=== PATIENT | female | born 1955 | race American Indian/Alaskan Native ===

== ENCOUNTER 2021-07-31 21:12 | Inpatient (IN) | payer SELFPAY ==
--- NOTE | 2021-07-31 22:37 | XRay Report ---
CHEST 2 VIEWS INDICATION / CLINICAL INFORMATION: sob. COMPARISON: Chest x-ray 01/02/2021 FINDINGS: SUPPORT DEVICES: None. HEART / MEDIASTINUM: Moderate to severe cardiomegaly increased in amount since comparison. LUNGS / PLEURA: Bilateral vascular prominence as well as bilateral fine interstitial opacities accent uated by technique. No pneumothorax. BONES: No significant osseous abnormality. ADDITIONAL FINDINGS: No significant additional findings. IMPRESSION: 1. Interval increase in degree of cardiomegaly could reflect presence of pericardial effusion. 2. Mild CHF not excluded. Signer Name: Jaiden Gonzales II, MD Signed: 07/31/2021 10:32 PM Workstation Name: [id number]
[2021-07-31 22:43] LABS: Basophils % (Auto) 0.6 % (0.0-1.8); Eosinophils % (Auto) 0.7 % (0.0-4.3); Hemoglobin 11.2 gm/dl (10.1-14.3); Lymphocytes # (Auto) 1.1 K/mm3 (1.2-5.4); Lymphocytes % (Auto) 21.8 % (13.4-35.0); Mean Corpuscular HGB Conc 31 % (30-34); Mean Corpuscular Volume 91 fl (79-97); Monocytes # (Auto) 0.7 K/mm3 (0.0-0.8); Monocytes % (Auto) 12.6 % (0.0-7.3); Platelet Count 103 K/mm3 (140-440); Red Blood Count 3.97 M/mm3 (3.65-5.03); Red Cell Distribution Width 16.8 % (13.2-15.2)
[2021-07-31 23:04] LABS: INR 1.15 (0.87-1.13)
[2021-07-31 23:05] LABS: Albumin 3.6 g/dL (3.9-5); Calcium 8.5 mg/dL (8.4-10.2); Partial Thromboplastin Time 29.3 Sec. (24.2-36.6)
--- NOTE | 2021-08-01 00:24 | Emergency Department Report ---
ED Shortness of Breath HPI - General Chief Complaint: Dyspnea/Respdistress Stated Complaint: CHF Time Seen by Provider: 07/31/21 23:31 Source: patient, old records reviewed Mode of arrival: Ambulatory Limitations: No Limitations - History of Present Illness Initial Comments: 66-year female with a history of nonischemic cardiomyopathy with a EF of 20 to 25% as per echocardiogram here December 2020 presents to the hospital with complaints of recurrent abdominal swelling, leg edema, and dyspnea on exertion. Patient denies chest pain. History of paracentesis in the past with last several months ago. Patient is currently wearing a LifeVest. She is compliant with her medications including diuretics. Patient expresses confusion regarding her recommended fluid intake. 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 [facility] - Related Data [place] Medications Medication Instructions Recorded Confirmed Last Taken cephALEXin [Keflex] 500 mg PO BID 01/03/21 01/03/21 01/02/21 Previous Rx's Medication Instructions Recorded Last Taken Type Furosemide [Lasix TAB] 40 mg PO DAILY@0600 #30 tablet 05/07/17 01/02/21 Rx carvediloL [Coreg] 6.25 mg PO BID #60 tablet 05/07/17 01/01/21 Rx levoFLOXacin [Levaquin TAB] 750 mg PO Q24HR #5 tablet 05/07/17 01/02/21 Rx lisinopriL [Zestril TAB] 10 mg PO QDAY #30 tablet 05/07/17 01/02/21 Rx DOXYCYCLINE Hyclate [Vibramycin 100 mg PO BID #10 tab 01/16/21 Unknown Rx CAP] Spironolactone [Aldactone] 25 mg PO QDAY tablet 01/16/21 Unknown Rx cephALEXin [Keflex] 500 mg PO Q6HR #24 capsule 01/16/21 Unknown Rx lisinopriL [Zestril TAB] 2.5 mg PO QDAY tablet 01/16/21 Unknown Rx oxyCODONE /ACETAMINOPHEN [Percocet 1 tab PO Q6H PRN tablet 01/16/21 Unknown Rx 5/325 mg] Allergies Allergy/AdvReac Type Severity Reaction Status Date / Time feathers AdvReac Itching Verified 01/03/21 12:20 ED Review of Systems ROS: Stated complaint: CHF Other details as noted in HPI Comment: All other systems reviewed and negative ED Past Medical Hx - Past Medical History Hx Congestive Heart Failure: Yes (Nonischemic cardiomyopathy) Hx Asthma: Yes Hx HIV: No Additional medical history: Leg cellulitis - Social History Smoking Status: Current Every Day Smoker - Medications Home Medications: Home Medications Medication Instructions Recorded Confirmed Last Taken Type Furosemide [Lasix TAB] 40 mg PO DAILY@0600 #30 tablet 05/07/17 01/03/21 01/02/21 Rx carvediloL [Coreg] 6.25 mg PO BID #60 tablet 05/07/17 01/03/21 01/01/21 Rx levoFLOXacin [Levaquin TAB] 750 mg PO Q24HR #5 tablet 05/07/17 01/03/21 01/02/21 Rx lisinopriL [Zestril TAB] 10 mg PO QDAY #30 tablet 05/07/17 01/03/21 01/02/21 Rx cephALEXin [Keflex] 500 mg PO BID 01/03/21 01/03/21 01/02/21 History DOXYCYCLINE Hyclate [Vibramycin 100 mg PO BID #10 tab 01/16/21 Unknown Rx CAP] Spironolactone [Aldactone] 25 mg PO QDAY tablet 01/16/21 Unknown Rx cephALEXin [Keflex] 500 mg PO Q6HR #24 capsule 01/16/21 Unknown Rx lisinopriL [Zestril TAB] 2.5 mg PO QDAY tablet 01/16/21 Unknown Rx oxyCODONE /ACETAMINOPHEN [Percocet 1 tab PO Q6H PRN tablet 01/16/21 Unknown Rx 5/325 mg] ED Physical Exam - General Limitations: No Limitations - Other Other exam information: General: No acute distress Head: Atraumatic Eyes: normal appearance ENT: Moist mucous membranes Neck: Normal appearance, no midline tenderness Chest: Diminished basilar breath sounds bilaterally CV: Regular rate and rhythm Abdomen: Soft, normal bowel sounds, significant distended abdomen fluid-filled likely secondary to site Back: Normal inspection Extremity: Bilateral lower extremity edema without leg asymmetry or calf tender Neuro: Alert O x 3, no facial asymmetry, speech clear, no gross motor sensory deficit Psych: Appropriate behavior Skin: No rash ED Course Vital Signs 07/31/21 21:18 Temperature 98.1 F Pulse Rate 68 Respiratory 22 Rate Blood Pressure 127/71 O2 Sat by Pulse 96 Oximetry ED Medical Decision Making - Lab Data Result diagrams: 07/31/21 21:36 06/13/22 21:36 Lab Results 07/31/21 07/31/21 07/31/21 Range/Units 21:36 21:36 21:36 WBC 5.2 (4.5-11.0) K/mm3 RBC 3.97 (3.65-5.03) M/mm3 Hgb 11.2 (10.1-14.3) gm/dl Hct 36.0 (30.3-42.9) % MCV 91 (79-97) fl MCH 28 (28-32) pg MCHC 31 (30-34) % RDW 16.8 H (13.2-15.2) % Plt Count 103 L (140-440) K/mm3 Lymph % (Auto) 21.8 (13.4-35.0) % [place] % (Auto) 12.6 H (0.0-7.3) % Eos % (Auto) 0.7 (0.0-4.3) % Baso % (Auto) 0.6 (0.0-1.8) % Lymph # (Auto) 1.1 L (1.2-5.4) K/mm3 [place] # (Auto) 0.7 (0.0-0.8) K/mm3 Eos # (Auto) 0.0 (0.0-0.4) K/mm3 Baso # (Auto) 0.0 (0.0-0.1) K/mm3 Seg Neutrophils % 64.3 (40.0-70.0) % Seg Neutrophils # 3.4 (1.8-7.7) K/mm3 PT 16.0 H (12.2-14.9) Sec. INR 1.15 H (0.87-1.13) APTT 29.3 (24.2-36.6) Sec. Sodium 143 (137-145) mmol/L Potassium 3.9 (3.6-5.0) mmol/L Chloride 104.7 (98-107) mmol/L Carbon Dioxide 24 (22-30) mmol/L Anion Gap 18 mmol/L BUN 20 H (7-17) mg/dL Creatinine 1.3 H (0.6-1.2) mg/dL Estimated GFR 50 ml/min BUN/Creatinine Ratio 15 % Glucose 123 H (65-100) mg/dL Calcium 8.5 (8.4-10.2) mg/dL Total Bilirubin 2.00 H (0.1-1.2) mg/dL AST 19 (5-40) units/L ALT 9 (7-56) units/L Alkaline Phosphatase 185 H (35-129) units/L NT-Pro-B Natriuret Pep 43648 H (0-900) pg/mL Total Protein 6.9 (6.3-8.2) g/dL Albumin 3.6 L (3.9-5) g/dL Albumin/Globulin Ratio 1.1 % - EKG Data -: EKG Interpreted by Me (previous anterior infarct) EKG shows normal: sinus rhythm, ST-T waves (no stemi) - EKG Data When compared to previous EKG there are: no significant change - Radiology Data Radiology results: report reviewed CHEST 2 VIEWS INDICATION / CLINICAL INFORMATION: sob. COMPARISON: Chest x-ray 01/02/2021 FINDINGS: SUPPORT DEVICES: None. HEART / MEDIASTINUM: Moderate to severe cardiomegaly increased in amount since comparison. LUNGS / PLEURA: Bilateral vascular prominence as well as bilateral fine interstitial opacities accentuated by technique. No pneumothorax. BONES: No significant osseous abnormality. ADDITIONAL FINDINGS: No significant additional findings. IMPRESSION: 1. Interval increase in degree of cardiomegaly could reflect presence of pericardial effusion. 2. Mild CHF not excluded. - Medical Decision Making 66-year-old female with nonischemic cardiomyopathy currently wearing a LifeVest presents to the hospital progressively worsening edema and shortness of breath. Chest x-ray shows worsening cardiomegaly compared to previous and pericardial effusion cannot be ruled out. Patient is not exhibiting any signs of cardiopulmonary stability at this time. Patient has required paracentesis in the past. IV Lasix ordered in the ED. patient will be admitted to the hospitalist service for further work-up with cardiology consultation Critical Care Time: No Critical care attestation.: If time is entered above; I have spent that time in minutes in the direct care of this critically ill patient, excluding procedure time. ED Disposition Clinical Impression: Dilated cardiomyopathy, Fluid overload, Ascites Disposition: ADMITTED INPATIENT Is pt being admited?: Yes Condition: Stable Referrals: PRIMARY CARE, [Primary Care Provider] - 3-5 Days Time of Disposition: 00:30
[2021-08-01] MEDS ORDERED: FUROSEMIDE 40 MG/4 ML INJ IV ONE (00:32)
[2021-08-01] MEDS ORDERED: ALBUTEROL 2.5 MG/3 ML NEBU IH PRN (01:32)
[2021-08-01] MEDS ORDERED: ACETAMINOPHEN 325 MG TAB PO PRN (01:32)
[2021-08-01] MEDS ORDERED: MORPHINE 2 MG/1 ML INJ IV PRN (01:32)
[2021-08-01] MEDS ORDERED: MORPHINE 4 MG/1 ML INJ IV PRN (01:32)
[2021-08-01] MEDS ORDERED: ONDANSETRON 4 MG/2 ML INJ IV PRN (01:32)
--- NOTE | 2021-08-01 01:41 | History and Physical Report ---
History of Present Illness Date of examination: 08/01/21 Date of admission: 08/01/21 Chief complaint: Dyspnea Respiratory distress History of present illness: 66-year female with a history of nonischemic cardiomyopathy with a EF of 20 to 25% as per echocardiogram here December 2020 presents to the hospital with complaints of recurrent abdominal swelling, leg edema, and dyspnea on exertion. Patient denies chest pain. History of paracentesis in the past with last several months ago. Patient is currently wearing a LifeVest. She is compliant with her medications including diuretics. Patient expresses confusion regarding her recommended fluid intake. 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 Mild CHF not excluded. We are going to admit the patient we will put the patient on CHF pathway will consult cardiology Past History Past Medical History: heart failure, other (Asthma, leg cellulitis) Past Surgical History: No surgical history Social history: smoking Family history: hypertension Medications and Allergies Allergies Allergy/AdvReac Type Severity Reaction Status Date / Time feathers AdvReac Itching Verified 01/03/21 12:20 Home Medications Medication Instructions Recorded Confirmed Last Taken Type Furosemide [Lasix TAB] 40 mg PO DAILY@0600 #30 tablet 05/07/17 01/03/21 01/02/21 Rx carvediloL [Coreg] 6.25 mg PO BID #60 tablet 05/07/17 01/03/21 01/01/21 Rx levoFLOXacin [Levaquin TAB] 750 mg PO Q24HR #5 tablet 05/07/17 01/03/21 01/02/21 Rx lisinopriL [Zestril TAB] 10 mg PO QDAY #30 tablet 05/07/17 01/03/21 01/02/21 Rx cephALEXin [Keflex] 500 mg PO BID 01/03/21 01/03/21 01/02/21 History DOXYCYCLINE Hyclate [Vibramycin 100 mg PO BID #10 tab 01/16/21 Unknown Rx CAP] Spironolactone [Aldactone] 25 mg PO QDAY tablet 01/16/21 Unknown Rx cephALEXin [Keflex] 500 mg PO Q6HR #24 capsule 01/16/21 Unknown Rx lisinopriL [Zestril TAB] 2.5 mg PO QDAY tablet 01/16/21 Unknown Rx oxyCODONE /ACETAMINOPHEN [Percocet 1 tab PO Q6H PRN tablet 01/16/21 Unknown Rx 5/325 mg] Active Meds: Active Medications Acetaminophen (Acetaminophen 325 Mg Tab) 650 mg PO Q4H PRN PRN Reason: Pain MILD(1-3)/Fever >100.5/DONIS Albuterol (Albuterol 2.5 Mg/3 Ml Nebu) 2.5 mg IH Q3HRT PRN PRN Reason: Shortness Of Breath Albuterol/Ipratropium (Ipratropium/Albuterol Sulfate 3 Ml Ampul.Neb) 1 ampul IH Q6HRT [place] Carvedilol (Carvedilol 6.25 Mg Tab) 6.25 mg PO BID [facility] Cephalexin (Cephalexin 500 Mg Cap) 500 mg PO BID [facility]; Protocol Famotidine (Famotidine 20 Mg Tab) 20 mg PO BID [facility] Furosemide (Furosemide 40 Mg/4 Ml Inj) 40 mg IV BID@0600,1800 [facility] Lisinopril (Lisinopril 5 Mg Tab) 2.5 mg PO QDAY [facility] Morphine Sulfate (Morphine 2 Mg/1 Ml Inj) 2 mg IV Q4H PRN PRN Reason: Pain, Moderate (4-6) Morphine Sulfate (Morphine 4 Mg/1 Ml Inj) 4 mg IV Q4H PRN PRN Reason: Pain , Severe (7-10) Ondansetron HCl (Ondansetron 4 Mg/2 Ml Inj) 4 mg IV Q8H PRN PRN Reason: Nausea And Vomiting Sodium Chloride (Sodium Chloride 0.9% 10 Ml Flush Syringe) 10 ml IV BID [facility] Sodium Chloride (Sodium Chloride 0.9% 10 Ml Flush Syringe) 10 ml IV PRN PRN PRN Reason: LINE FLUSH Spironolactone (Spironolactone 25 Mg Tab) 25 mg PO QDAY [facility] Review of Systems All systems: negative Constitutional: other (Abdominal distention, leg swelling) Cardiovascular: orthopnea, edema, shortness of breath, dyspnea on exertion, paroxysmal nocturnal dyspnea Respiratory: shortness of breath, dyspnea on exertion Exam - Constitutional Vitals: Temp Pulse Resp BP Pulse Ox 98.1 F 68 22 127/71 96 07/31/21 21:18 07/31/21 21:18 07/31/21 21:18 07/31/21 21:18 07/31/21 21:18 General appearance: Present: no acute distress, well-nourished - EENT Eyes: Present: PERRL ENT: hearing intact, clear oral mucosa - Neck Neck: Present: supple, normal ROM - Respiratory Respiratory effort: normal Respiratory: bilateral: rales - Cardiovascular Heart Sounds: Present: S1 & S2. Absent: rub, click - Extremities Extremities: pulses symmetrical Extremity abnormal: edema Peripheral Pulses: within normal limits - Abdominal General gastrointestinal: Present: soft, non-tender, non-distended, normal bowel sounds Female genitourinary: Present: normal - Integumentary Integumentary: Present: clear, warm, dry - Musculoskeletal Musculoskeletal: gait normal, strength equal bilaterally - Psychiatric Psychiatric: appropriate mood/affect, intact judgment & insight - Neurologic Neurologic: CNII-XII intact, moves all extremities Results - Labs CBC & Chem 7: 07/31/21 21:36 07/31/21 21:36 Labs: Laboratory Last Values WBC 5.2 K/mm3 (4.5-11.0) 07/31/21 21:36 RBC 3.97 M/mm3 (3.65-5.03) 07/31/21 21:36 Hgb 11.2 gm/dl (10.1-14.3) 07/31/21 21:36 Hct 36.0 % (30.3-42.9) 07/31/21 21:36 MCV 91 fl (79-97) 07/31/21 21:36 MCH 28 pg (28-32) 07/31/21 21:36 MCHC 31 % (30-34) 07/31/21 21:36 RDW 16.8 % (13.2-15.2) H 07/31/21 21:36 Plt Count 103 K/mm3 (140-440) L 07/31/21 21:36 Lymph % (Auto) 21.8 % (13.4-35.0) 07/31/21 21:36 [place] % (Auto) 12.6 % (0.0-7.3) H 07/31/21 21:36 Eos % (Auto) 0.7 % (0.0-4.3) 07/31/21 21:36 Baso % (Auto) 0.6 % (0.0-1.8) 07/31/21 21:36 Lymph # (Auto) 1.1 K/mm3 (1.2-5.4) L 07/31/21 21:36 [place] # (Auto) 0.7 K/mm3 (0.0-0.8) 07/31/21 21:36 Eos # (Auto) 0.0 K/mm3 (0.0-0.4) 07/31/21 21:36 Baso # (Auto) 0.0 K/mm3 (0.0-0.1) 07/31/21 21:36 Seg Neutrophils % 64.3 % (40.0-70.0) 07/31/21 21:36 Seg Neutrophils # 3.4 K/mm3 (1.8-7.7) 07/31/21 21:36 PT 16.0 Sec. (12.2-14.9) H 07/31/21 21:36 INR 1.15 (0.87-1.13) H 07/31/21 21:36 APTT 29.3 Sec. (24.2-36.6) 07/31/21 21:36 Sodium 143 mmol/L (137-145) 07/31/21 21:36 Potassium 3.9 mmol/L (3.6-5.0) 07/31/21 21:36 Chloride 104.7 mmol/L (98-107) 07/31/21 21:36 Carbon Dioxide 24 mmol/L (22-30) 07/31/21 21:36 Anion Gap 18 mmol/L 07/31/21 21:36 BUN 20 mg/dL (7-17) H 07/31/21 21:36 Creatinine 1.3 mg/dL (0.6-1.2) H 07/31/21 21:36 Estimated GFR 50 ml/min 07/31/21 21:36 BUN/Creatinine Ratio 15 % 07/31/21 21:36 Glucose 123 mg/dL (65-100) H 07/31/21 21:36 Calcium 8.5 mg/dL (8.4-10.2) 07/31/21 21:36 Total Bilirubin 2.00 mg/dL (0.1-1.2) H 07/31/21 21:36 AST 19 units/L (5-40) 07/31/21 21:36 ALT 9 units/L (7-56) 07/31/21 21:36 Alkaline Phosphatase 185 units/L (35-129) H 07/31/21 21:36 NT-Pro-B Natriuret Pep 60028 pg/mL (0-900) H 07/31/21 21:36 Total Protein 6.9 g/dL (6.3-8.2) 07/31/21 21:36 Albumin 3.6 g/dL (3.9-5) L 07/31/21 21:36 Albumin/Globulin Ratio 1.1 % 07/31/21 21:36 - Imaging and Cardiology Chest x-ray: report reviewed Assessment and Plan VTE prophylaxis?: Mechanical Plan of care discussed with patient/family: Yes - Patient Problems (1) Dilated cardiomyopathy Current Visit: Yes Status: Acute Plan to address problem: Admit the patient to the medical telemetry. Cardiac diet. Fluid restriction. Coreg 6.25 mg p.o. twice daily. Lisinopril 2.5 mg p.o. daily. Lasix 40 mg IV every 12 hours. Echocardiogram. Cardiology evaluation (2) Ascites Current Visit: Yes Status: Acute Plan to address problem: Cardiac diet. Fluid restriction. Coreg 6.25 mg p.o. twice daily. Lisinopril 2.5 mg p.o. daily. Lasix 40 mg IV every 12 hours. Will consult ultrasound- guided paracentesis (3) Asthma Current Visit: Yes Status: Acute Plan to address problem: Oxygen by nasal cannula 3 L/min. DuoNeb via nebulizer every 4 hours. Albuterol via nebulizer every 4 hours as needed (4) Fluid overload Current Visit: Yes Status: Acute Plan to address problem: Cardiac diet. Fluid restriction. Coreg 6.25 mg p.o. twice daily. Lisinopril 2.5 mg p.o. daily. Lasix 40 mg IV every 12 hours. Will consult ultrasound- guided paracentesis (5) DVT prophylaxis Current Visit: Yes Status: Acute Plan to address problem: SCD for DVT prophylaxis. Pepcid 20 mg p.o. twice daily for GI prophylaxis. Patient is a full code
[2021-08-01] MEDS: IPRATROPIUM/ALBUTEROL SULFATE 3 ML AMPUL.NEB IH SCH ×4 (08:45→20:04)
[2021-08-01] MEDS: SPIRONOLACTONE 25 MG TAB PO SCH (09:10)
[2021-08-01] MEDS: FUROSEMIDE 40 MG/4 ML INJ IV SCH ×2 (09:10→18:09)
[2021-08-01] MEDS: carvediloL 6.25 MG TAB PO SCH ×2 (09:10→18:09)
[2021-08-01] MEDS: FAMOTIDINE 20 MG TAB PO SCH ×2 (09:10→22:53)
[2021-08-01] MEDS ORDERED: cephALEXin 500 MG CAP PO SCH (10:00)
[2021-08-01] MEDS ORDERED: LISINOPRIL 5 MG TAB PO SCH (10:00)
--- NOTE | 2021-08-01 10:07 | Electrocardiograph Report ---
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
[2021-08-01] MEDS ORDERED: LIDOCAINE (1%) 10 MG/1 ML VIAL 20 ML MDV ONE (10:19)
[2021-08-01] MEDS ORDERED: LIDOCAINE (1%) 10 MG/1 ML VIAL 20 ML MDV INFILTRATI NR (10:35)
--- NOTE | 2021-08-01 10:35 | Procedure Note ---
Date of procedure: 08/01/21 Pre-op diagnosis: ascites Post-op diagnosis: same Procedure: US paracentesis Findings: large ascites Anesthesia: local Surgeon: FANNY GUTIÉRREZ Estimated blood loss: none Pathology: list (120cc) Specimen disposition: to lab Condition: stable Disposition: floor
--- NOTE | 2021-08-01 12:23 | Consultation ---
History of Present Illness Consult date: 08/01/21 Consult reason: congestive heart failure History of present illness: The patient is a 66-year-old woman with a history of dilated nonischemic cardiomyopathy and chronic systolic left ventricular failure. In April 2017, a cardiac catheterization demonstrated normal coronary arteries, and established the diagnosis of a nonischemic cardiomyopathy. Serial left ventricular function assessments, most recently by echocardiogram 6 months ago have consistently reported left ventricular systolic ejection fraction at 20 to 25%. The patient states that she is compliant with guideline directed medical therapy, and follows up regularly with Dr. Vijay Pollard, her outpatient nurse reviewer. She does however admit to a predilection for high salt fast foods, and has been chronically noncompliant with dietary salt restrictions. She presents to the hospital at this time with complaints of increasing shortness of breath, lower extremity edema, and increasing abdominal girth. She is admitted with acute on chronic systolic heart failure exacerbation. There is no chest pain, no palpitations and no syncope. She states that she is currently undergoing discussions with her outpatient nurse reviewer regarding a possible primary ICD implant in the future. EKG is normal sinus rhythm, low voltage QRS, poor R wave progression but no acute ST or T wave changes. Chest x-ray shows a severe cardiomegaly, mild to moderate bilateral interstitial edema. Past History Past Medical History: heart failure, other (Asthma, leg cellulitis) Past Surgical History: No surgical history Social history: smoking Family history: hypertension Medications and Allergies Allergies Allergy/AdvReac Type Severity Reaction Status Date / Time feathers AdvReac Itching Verified 01/03/21 12:20 Home Medications Medication Instructions Recorded Confirmed Last Taken Type Furosemide [Lasix TAB] 40 mg PO DAILY@0600 #30 tablet 05/07/17 08/01/21 1 Day A go Rx ~07/31/21 carvediloL [Coreg] 6.25 mg PO BID #60 tablet 05/07/17 08/01/21 1 Day Ago Rx ~07/31/21 lisinopriL [Zestril TAB] 10 mg PO QDAY #30 tablet 05/07/17 08/01/21 01/02/21 Rx Spironolactone [Aldactone] 25 mg PO QDAY tablet 01/16/21 08/01/21 1 Day Ago Rx ~07/31/21 lisinopriL [Zestril TAB] 2.5 mg PO QDAY tablet 01/16/21 08/01/21 1 Day Ago Rx ~07/31/21 oxyCODONE /ACETAMINOPHEN [Percocet 1 tab PO Q6H PRN tablet 01/16/21 08/01/21 Unknown Rx 5/325 mg] Active Meds: Active Medications Acetaminophen (Acetaminophen 325 Mg Tab) 650 mg PO Q4H PRN PRN Reason: Pain MILD(1-3)/Fever >100.5/DONIS Albuterol (Albuterol 2.5 Mg/3 Ml Nebu) 2.5 mg IH Q3HRT PRN PRN Reason: Shortness Of Breath Albuterol/Ipratropium (Ipratropium/Albuterol Sulfate 3 Ml Ampul.Neb) 1 ampul IH Q6HRT [facility] Last Admin: 08/01/21 08:45 Dose: 1 ampul Carvedilol (Carvedilol 6.25 Mg Tab) 6.25 mg PO BID@0800,1700 [facility] Last Admin: 08/01/21 09:10 Dose: 6.25 mg Famotidine (Famotidine 20 Mg Tab) 20 mg PO BID [facility] Last Admin: 08/01/21 09:10 Dose: 20 mg Furosemide (Furosemide 40 Mg/4 Ml Inj) 40 mg IV BID@0600,1800 [facility] Last Admin: 08/01/21 09:10 Dose: 40 mg Lidocaine (Lidocaine (1%) 10 Mg/1 Ml Vial 20 Ml Mdv) 20 ml INFILTRATI ONCE NR Stop: 08/01/21 13:00 Lisinopril (Lisinopril 5 Mg Tab) 2.5 mg PO QDAY [facility] Last Admin: 08/01/21 09:10 Dose: 2.5 mg Morphine Sulfate (Morphine 2 Mg/1 Ml Inj) 2 mg IV Q4H PRN PRN Reason: Pain, Moderate (4-6) Morphine Sulfate (Morphine 4 Mg/1 Ml Inj) 4 mg IV Q4H PRN PRN Reason: Pain , Severe (7-10) Ondansetron HCl (Ondansetron 4 Mg/2 Ml Inj) 4 mg IV Q8H PRN PRN Reason: Nausea And Vomiting Sodium Chloride (Sodium Chloride 0.9% 10 Ml Flush Syringe) 10 ml IV BID [facility] Last Admin: 08/01/21 09:11 Dose: 10 ml Sodium Chloride (Sodium Chloride 0.9% 10 Ml Flush Syringe) 10 ml IV PRN PRN PRN Reason: LINE FLUSH Spironolactone (Spironolactone 25 Mg Tab) 25 mg PO QDAY [facility] Last Admin: 08/01/21 09:10 Dose: 25 mg Review of Systems Cardiovascular: orthopnea, edema, shortness of breath, no chest pain, no palpitations, no rapid/irregular heart beat, no syncope, no lightheadedness Physical Examination Vital Signs Temp Pulse Resp BP Pulse Ox 98.1 F 68 22 127/71 96 07/31/21 21:18 07/31/21 21:18 07/31/21 21:18 07/31/21 21:18 07/31/21 21:18 General appearance: no acute distress HEENT: Positive: PERRL Neck: Positive: neck supple Cardiac: Positive: Reg Rate and Rhythm Lungs: Positive: Decreased Breath Sounds Neuro: Positive: Grossly Intact Abdomen: Positive: Ascites Female genitourinary: deferred Skin: Positive: Clear Extremities: Present: +1 Edema Results 07/31/21 21:36 07/31/21 21:36 Cardiac Enzymes 07/31/21 Range/Units 21:36 AST 19 (5-40) units/L Coagulation 07/31/21 Range/Units 21:36 PT 16.0 H (12.2-14.9) Sec. INR 1.15 H (0.87-1.13) APTT 29.3 (24.2-36.6) Sec. CBC 07/31/21 Range/Units 21:36 WBC 5.2 (4.5-11.0) K/mm3 RBC 3.97 (3.65-5.03) M/mm3 Hgb 11.2 (10.1-14.3) gm/dl Hct 36.0 (30.3-42.9) % Plt Count 103 L (140-440) K/mm3 Lymph # (Auto) 1.1 L (1.2-5.4) K/mm3 [place] # (Auto) 0.7 (0.0-0.8) K/mm3 Eos # (Auto) 0.0 (0.0-0.4) K/mm3 Baso # (Auto) 0.0 (0.0-0.1) K/mm3 Comprehensive Metabolic Panel 07/31/21 Range/Units 21:36 Sodium 143 (137-145) mmol/L Potassium 3.9 (3.6-5.0) mmol/L Chloride 104.7 (98-107) mmol/L Carbon Dioxide 24 (22-30) mmol/L BUN 20 H (7-17) mg/dL Creatinine 1.3 H (0.6-1.2) mg/dL Glucose 123 H (65-100) mg/dL Calcium 8.5 (8.4-10.2) mg/dL AST 19 (5-40) units/L ALT 9 (7-56) units/L Alkaline Phosphatase 185 H (35-129) units/L Total Protein 6.9 (6.3-8.2) g/dL Albumin 3.6 L (3.9-5) g/dL EKG interpretations - Telemetry EKG Rhythm: Sinus Rhythm (Low voltage QRS, poor R wave progression, no acute ST or T wave changes) Assessment and Plan - Patient Problems (1) Acute on chronic systolic heart failure Current Visit: Yes Status: Acute Plan to address problem: We will optimize guideline directed medical therapy including intravenous diuretics. Patient may also benefit from a trial of intravenous milrinone. I have recommended that she maintains a strict compliance with dietary salt restrictions.
--- NOTE | 2021-08-01 20:26 | Event Note ---
Date: 08/01/21 Patient seen and evaluated Severe CHF and dilated cardiomyopathy Guideline directed medical therapy IV Lasix and Aldactone follow-up
[2021-08-02 05:21] LABS: Basophils % (Auto) 0.5 % (0.0-1.8); Eosinophils % (Auto) 0.9 % (0.0-4.3); Hematocrit 36.6 % (30.3-42.9); Hemoglobin 11.3 gm/dl (10.1-14.3); Lymphocytes # (Auto) 1.2 K/mm3 (1.2-5.4); Lymphocytes % (Auto) 23.4 % (13.4-35.0); Mean Corpuscular HGB Conc 31 % (30-34); Mean Corpuscular Volume 90 fl (79-97); Monocytes # (Auto) 0.7 K/mm3 (0.0-0.8); Monocytes % (Auto) 13.6 % (0.0-7.3); Platelet Count 118 K/mm3 (140-440); Red Blood Count 4.06 M/mm3 (3.65-5.03); Red Cell Distribution Width 17.1 % (13.2-15.2)
[2021-08-02 05:43] LABS: Calcium 8.2 mg/dL (8.4-10.2)
[2021-08-02] MEDS: FUROSEMIDE 40 MG/4 ML INJ IV SCH ×2 (06:30→17:12)
[2021-08-02] MEDS: carvediloL 6.25 MG TAB PO SCH ×2 (08:00→17:12)
[2021-08-02] MEDS: IPRATROPIUM/ALBUTEROL SULFATE 3 ML AMPUL.NEB IH SCH ×3 (08:31→21:08)
[2021-08-02] MEDS: MILRINONE-D5W 20 MG/100 ML 20 MG/100 ML BAG IV SCH ×2 (10:22→17:12)
--- NOTE | 2021-08-02 10:28 | Progress Note ---
Assessment and Plan - Patient Problems (1) Acute on chronic systolic heart failure Current Visit: Yes Status: Acute Plan to address problem: I have requested the nursing staff to immediately start IV milrinone treatment as ordered, continue other guideline directed medical therapy. Subjective Date of service: 08/02/21 Principal diagnosis: Acute on chronic systolic heart failure Interval history: Patient is comfortable in no acute distress, but still has significant abdominal distention and ascites despite paracentesis. Unfortunately, the intravenous milrinone infusion that was ordered yesterday has not been administered up till this moment. Objective Vital Signs Temp Pulse Pulse Resp Resp BP BP 08/02/21 08:34 08/02/21 08:33 71 21 08/02/21 04:08 97.7 F 50 L 16 115/55 08/02/21 03:00 59 L 08/02/21 01:00 97.8 F 61 18 08/01/21 20:35 97.8 F 08/01/21 20:34 59 L 18 108/48 08/01/21 20:06 62 16 08/01/21 19:00 51 L 08/01/21 18:00 08/01/21 16:31 108/52 08/01/21 16:29 51 L 08/01/21 14:15 59 L 18 BP Pulse Ox 08/02/21 08:34 99 08/02/21 08:33 08/02/21 04:08 100 08/02/21 03:00 08/02/21 01:00 105/57 97 08/01/21 20:35 08/01/21 20:34 100 08/01/21 20:06 100 08/01/21 19:00 08/01/21 18:00 95 08/01/21 16:31 08/01/21 16:29 98 08/01/21 14:15 - Physical Examination HEENT: Positive: PERRL Neck: Positive: neck supple Cardiac: Positive: Reg Rate and Rhythm Lungs: Positive: Decreased Breath Sounds Neuro: Positive: Grossly Intact Abdomen: Positive: Ascites Skin: Positive: Clear Extremities: Present: +1 Edema - Labs and Meds CBC 08/02/21 Range/Units 04:39 WBC 5.1 (4.5-11.0) K/mm3 RBC 4.06 (3.65-5.03) M/mm3 Hgb 11.3 (10.1-14.3) gm/dl Hct 36.6 (30.3-42.9) % Plt Count 118 L (140-440) K/mm3 Lymph # (Auto) 1.2 (1.2-5.4) K/mm3 Blount # (Auto) 0.7 (0.0-0.8) K/mm3 Eos # (Auto) 0.0 (0.0-0.4) K/mm3 Baso # (Auto) 0.0 (0.0-0.1) K/mm3 Comprehensive Metabolic Panel 08/02/21 Range/Units 04:39 Sodium 142 (137-145) mmol/L Potassium 4.0 (3.6-5.0) mmol/L Chloride 103.5 (98-107) mmol/L Carbon Dioxide 30 (22-30) mmol/L BUN 20 H (7-17) mg/dL Creatinine 1.4 H (0.6-1.2) mg/dL Glucose 101 H (65-100) mg/dL Calcium 8.2 L (8.4-10.2) mg/dL
[2021-08-02] MEDS: SPIRONOLACTONE 25 MG TAB PO SCH (10:32)
[2021-08-02] MEDS: FAMOTIDINE 20 MG TAB PO SCH ×2 (10:33→21:21)
[2021-08-02] MEDS: LISINOPRIL 5 MG TAB PO SCH (10:33)
--- NOTE | 2021-08-02 14:42 | Ultrasound Report ---
ULTRASOUND-GUIDED PARACENTESIS HISTORY: ascities. PROCEDURE: The risks (including but not limited to bleeding, infection, and bowel injury) and benefi ts were explained to the patient and informed consent was obtained. A time out procedure was perform ed. Ultrasound was used to evaluate the abdomen and locate the largest ascites fluid pocket. Once the sk in was marked, the procedure site was prepped and draped in the usual sterile fashion and lidocaine w as used for local anesthesia. A 5 [place] centesis catheter was placed. The patient was monitored cl osely throughout the procedure, and a total of 10 L of clear yellow fluid was aspirated. Samples wer e sent to the lab for further evaluation per the primary clinicians orders. The patient tolerated the procedure well with no complications. IMPRESSION: Successful ultrasound-guided paracentesis as described. Signer Name: Lino Matthew Jr, MD Signed: 08/02/2021 2:38 PM Workstation Name: [id number]
[2021-08-03] MEDS: MILRINONE-D5W 20 MG/100 ML 20 MG/100 ML BAG IV SCH ×2 (01:50→23:02)
[2021-08-03] MEDS: FUROSEMIDE 40 MG/4 ML INJ IV SCH ×3 (06:29→18:26)
--- NOTE | 2021-08-03 08:08 | Progress Note ---
Assessment and Plan Assessment and Plan VTE prophylaxis?: Mechanical Plan of care discussed with patient/family: Yes - Patient Problems (1) CHF exacerbation and Dilated cardiomyopathy Current Visit: Yes Status: Acute Plan to address problem: On Milrinone drip IV Lasix (2) Ascites Current Visit: Yes Status: Acute Plan to address problem: Paracentesis on Saturday by radiology (3) Asthma Current Visit: Yes Status: Acute Plan to address problem: Oxygen by nasal cannula 3 L/min. DuoNeb via nebulizer every 4 hours. Albuterol via nebulizer every 4 hours as needed (4) Fluid overload Current Visit: Yes Status: Acute Plan to address problem: Cardiac diet. Fluid restriction. Coreg 6.25 mg p.o. twice daily. Lisinopril 2.5 mg p.o. daily. Lasix 40 mg IV every 12 hours. Will consult ultrasound-guided paracentesis (5) DVT prophylaxis Current Visit: Yes Status: Acute Plan to address problem: SCD for DVT prophylaxis. Pepcid 20 mg p.o. twice daily for GI prophylaxis. Patient is a full code Subjective Date of service: 08/02/21 Principal diagnosis: Acute on chronic systolic heart failure Interval history: 66-year female with a history of nonischemic cardiomyopathy with a EF of 20 to 25% as per echocardiogram here December 2020 presents to the hospital with complaints of recurrent abdominal swelling, leg edema, and dyspnea on exertion. Patient denies chest pain. History of paracentesis in the past with last several months ago. Patient is currently wearing a LifeVest. She is compliant with her medications including diuretics. Patient expresses confusion regarding her recommended fluid intake. Delinquent Notice Machine Operator: Dr. Pollard affiliated with [facility] In the emergency room [place] [address], chest x-ray shows interval increase in degree of cardiomegaly could reflect presence of pericardial effusion. Mild CHF not excluded. We are going to admit the patient we will put the patient on CHF pathway will consult cardiology 08/02/2021 Patient started on milrinone drip for severe CHF Objective - Constitutional Vitals: Vital Signs - 12hr 08/02/21 08/02/21 08/02/21 21:08 21:10 22:00 Pulse Rate 77 Pulse Rate [ 70 Bilateral] Respiratory Rate Respiratory 20 Rate [Bilateral ] Blood Pressure O2 Sat by Pulse 100 Oximetry 08/03/21 08/03/21 02:04 03:16 Pulse Rate 66 Pulse Rate [ Bilateral] Respiratory 18 Rate Respiratory Rate [Bilateral ] Blood Pressure 88/38 O2 Sat by Pulse 98 97 Oximetry General appearance: Present: no acute distress, well-nourished - EENT Eyes: PERRL, EOM intact ENT: hearing intact, clear oral mucosa Ears: bilateral: normal - Neck Neck: supple, normal ROM - Respiratory Respiratory effort: normal Respiratory: bilateral: CTA - Breasts Breasts: normal - Cardiovascular Heart rate: 78 Rhythm: regular Heart Sounds: Present: S1 & S2. Absent: gallop, rub Extremities: pulses intact, No edema, normal color, Full ROM - Gastrointestinal General gastrointestinal: Present: soft, non-tender, distended, normal bowel sounds - Genitourinary Female genitourinary: normal - Integumentary Integumentary: clear, warm, dry - Musculoskeletal Musculoskeletal: 1, strength equal bilaterally - Neurologic Neurologic: moves all extremities - Psychiatric Psychiatric: memory intact, appropriate mood/affect, intact judgment & insight - Labs CBC & Chem 7: 08/02/21 04:39 08/02/21 04:39
[2021-08-03] MEDS: IPRATROPIUM/ALBUTEROL SULFATE 3 ML AMPUL.NEB IH SCH ×3 (09:10→20:39)
[2021-08-03] MEDS: SPIRONOLACTONE 25 MG TAB PO SCH (11:30)
[2021-08-03] MEDS: carvediloL 6.25 MG TAB PO SCH ×2 (11:34→18:20)
[2021-08-03] MEDS: LISINOPRIL 5 MG TAB PO SCH (11:35)
[2021-08-03] MEDS: FAMOTIDINE 20 MG TAB PO SCH ×2 (11:35→23:03)
--- NOTE | 2021-08-03 12:49 | Progress Note ---
Assessment and Plan - Patient Problems (1) Acute on chronic systolic heart failure Current Visit: Yes Status: Acute Plan to address problem: Continue optimal medical therapy for acute on chronic systolic heart failure including intravenous diuretics and intravenous milrinone. Subjective Date of service: 08/03/21 Principal diagnosis: Acute on chronic systolic heart failure Interval history: Patient is comfortable, no acute distress. She is tolerating IV milrinone infusion. Still complains of increased abdominal girth. Objective Vital Signs Temp Pulse Pulse Resp Resp BP BP 08/03/21 11:35 76 08/03/21 11:34 76 08/03/21 11:30 76 119/45 08/03/21 11:29 98 F 76 16 119/53 08/03/21 08:20 98.2 F 65 131/53 08/03/21 03:16 66 18 88/38 08/03/21 02:04 08/02/21 22:00 77 08/02/21 21:10 08/02/21 21:08 70 20 08/02/21 19:31 97.6 F 69 16 95/38 08/02/21 18:00 08/02/21 17:38 97.5 F L 48 L 102/49 08/02/21 17:12 60 08/02/21 14:30 83 19 Pulse Ox 08/03/21 11:35 08/03/21 11:34 08/03/21 11:30 08/03/21 11:29 98 08/03/21 08:20 08/03/21 03:16 97 08/03/21 02:04 98 08/02/21 22:00 08/02/21 21:10 100 08/02/21 21:08 08/02/21 19:31 98 08/02/21 18:00 97 08/02/21 17:38 08/02/21 17:12 08/02/21 14:30 - Physical Examination HEENT: Positive: PERRL Neck: Positive: neck supple Cardiac: Positive: Reg Rate and Rhythm Lungs: Positive: Decreased Breath Sounds Neuro: Positive: Grossly Intact Abdomen: Positive: Ascites Skin: Positive: Clear Extremities: Present: +1 Edema
[2021-08-04] MEDS: FUROSEMIDE 40 MG/4 ML INJ IV SCH ×2 (05:55→17:28)
[2021-08-04] MEDS: MILRINONE-D5W 20 MG/100 ML 20 MG/100 ML BAG IV SCH ×2 (05:55→21:39)
[2021-08-04] MEDS: IPRATROPIUM/ALBUTEROL SULFATE 3 ML AMPUL.NEB IH SCH ×3 (08:21→20:09)
[2021-08-04] MEDS: FAMOTIDINE 20 MG TAB PO SCH ×2 (10:34→21:45)
[2021-08-04] MEDS: SPIRONOLACTONE 25 MG TAB PO SCH (10:34)
[2021-08-04] MEDS: LISINOPRIL 5 MG TAB PO SCH (10:34)
[2021-08-04] MEDS: carvediloL 6.25 MG TAB PO SCH ×2 (10:34→17:28)
--- NOTE | 2021-08-04 13:08 | Progress Note ---
Assessment and Plan - Patient Problems (1) Acute on chronic systolic heart failure Current Visit: Yes Status: Acute Plan to address problem: Continue optimal medical therapy for acute on chronic systolic heart failure including intravenous diuretics and intravenous milrinone. With regards to persistent ascites, further GI evaluation should be considered. Subjective Date of service: 08/04/21 Principal diagnosis: Acute on chronic systolic heart failure Interval history: Patient is comfortable, no acute distress. Patient has persistent, severe abdominal distention due to ascites. No cardiac complaints. Objective Vital Signs Temp Pulse Pulse Resp Resp Resp BP 08/04/21 11:32 08/04/21 09:32 08/04/21 08:21 76 20 08/04/21 06:56 97.5 F L 42 L 20 142/88 08/04/21 03:26 98.9 F 67 20 90/40 08/04/21 01:26 98.8 F 63 98 H 101/43 08/03/21 23:33 08/03/21 20:42 08/03/21 20:23 97.7 F 71 22 108/44 08/03/21 20:00 80 70 20 08/03/21 18:20 72 08/03/21 18:00 16 08/03/21 16:24 97.9 F 82 103/46 Pulse Ox 08/04/21 11:32 98 08/04/21 09:32 99 08/04/21 08:21 08/04/21 06:56 99 08/04/21 03:26 99 08/04/21 01:26 97 08/03/21 23:33 98 08/03/21 20:42 99 08/03/21 20:23 96 08/03/21 20:00 08/03/21 18:20 08/03/21 18:00 98 08/03/21 16:24 96 - Physical Examination General: No Apparent Distress HEENT: Positive: PERRL Neck: Positive: neck supple Cardiac: Positive: Reg Rate and Rhythm Lungs: Positive: Decreased Breath Sounds Neuro: Positive: Grossly Intact Abdomen: Positive: Ascites, Firm, Distended Skin: Positive: Clear Extremities: Present: +1 Edema
[2021-08-05] MEDS: MILRINONE-D5W 20 MG/100 ML 20 MG/100 ML BAG IV SCH (06:01)
[2021-08-05] MEDS: FUROSEMIDE 40 MG/4 ML INJ IV SCH ×3 (06:07→17:23)
[2021-08-05] MEDS: FAMOTIDINE 20 MG TAB PO SCH ×2 (09:00→22:44)
[2021-08-05] MEDS: carvediloL 6.25 MG TAB PO SCH ×2 (09:00→17:23)
[2021-08-05] MEDS: SPIRONOLACTONE 25 MG TAB PO SCH (09:01)
[2021-08-05] MEDS: IPRATROPIUM/ALBUTEROL SULFATE 3 ML AMPUL.NEB IH SCH ×3 (09:08→21:38)
--- NOTE | 2021-08-05 09:39 | Progress Note ---
Assessment and Plan - Patient Problems (1) Acute on chronic systolic heart failure Current Visit: Yes Status: Acute Plan to address problem: Continue optimal medical therapy for acute on chronic systolic heart failure including intravenous diuretics and intravenous milrinone. Internal medicine and GI work-up and management of persistent severe ascites. Subjective Date of service: 08/05/21 Principal diagnosis: Acute on chronic systolic heart failure Interval history: Patient is comfortable in no acute distress. No new cardiac events reported. Objective Vital Signs Temp Pulse Pulse Resp Resp Resp BP 08/05/21 09:10 08/05/21 09:08 90 16 08/05/21 08:35 98.8 F 39 L 110/64 08/05/21 06:00 16 08/05/21 04:00 98.6 F 47 L 08/05/21 03:42 38 L 08/04/21 22:00 08/04/21 20:16 08/04/21 20:09 77 15 08/04/21 20:00 97.9 F 90 18 08/04/21 17:00 103/43 08/04/21 11:32 BP Pulse Ox 08/05/21 09:10 98 08/05/21 09:08 08/05/21 08:35 99 08/05/21 06:00 08/05/21 04:00 118/31 08/05/21 03:42 100 08/04/21 22:00 98 08/04/21 20:16 98 08/04/21 20:09 08/04/21 20:00 124/71 97 08/04/21 17:00 08/04/21 11:32 98 - Physical Examination General: No Apparent Distress HEENT: Positive: PERRL Neck: Positive: neck supple Cardiac: Positive: Reg Rate and Rhythm Lungs: Positive: Decreased Breath Sounds Neuro: Positive: Grossly Intact Abdomen: Positive: Ascites, Firm, Distended Skin: Positive: Clear Extremities: Present: +1 Edema
[2021-08-05] MEDS: LISINOPRIL 5 MG TAB PO SCH (12:02)
--- NOTE | 2021-08-05 15:37 | Progress Note ---
Assessment and Plan Assessment and Plan VTE prophylaxis?: Mechanical Plan of care discussed with patient/family: Yes - Patient Problems (1) CHF exacerbation and Dilated cardiomyopathy Current Visit: Yes Status: Acute Plan to address problem: On Milrinone drip IV Lasix (2) Ascites Current Visit: Yes Status: Acute Plan to address problem: Paracentesis on Saturday by radiology (3) Asthma Current Visit: Yes Status: Acute Plan to address problem: Oxygen by nasal cannula 3 L/min. DuoNeb via nebulizer every 4 hours. Albuterol via nebulizer every 4 hours as needed (4) Fluid overload Current Visit: Yes Status: Acute Plan to address problem: Cardiac diet. Fluid restriction. Coreg 6.25 mg p.o. twice daily. Lisinopril 2.5 mg p.o. daily. Lasix 40 mg IV every 12 hours. Will consult ultrasound-guided paracentesis (5) DVT prophylaxis Current Visit: Yes Status: Acute Plan to address problem: SCD for DVT prophylaxis. Pepcid 20 mg p.o. twice daily for GI prophylaxis. Patient is a full code Subjective Date of service: 08/05/21 Principal diagnosis: Acute on chronic systolic heart failure Interval history: 66-year female with a history of nonischemic cardiomyopathy with a EF of 20 to 25% as per echocardiogram here December 2020 presents to the hospital with complaints of recurrent abdominal swelling, leg edema, and dyspnea on exertion. Patient denies chest pain. History of paracentesis in the past with last several months ago. Patient is currently wearing a LifeVest. She is compliant with her medications including diuretics. Patient expresses confusion regarding her recommended fluid intake. Greenhouse Manager: Dr. Pollard affiliated with [facility] In the emergency room [place] [address], chest x-ray shows interval increase in degree of cardiomegaly could reflect presence of pericardial effusion. Mild CHF not excluded. We are going to admit the patient we will put the patient on CHF pathway will consult cardiology 08/02/2021 Patient started on milrinone drip for severe CHF 08/03/21 on Milrinone drip 08/04/21 On Milrinone drip 08/05/21 On Milrinone For Paracentesis in AM Objective - Constitutional Vitals: Vital Signs - 12hr 08/05/21 08/05/21 08/05/21 03:42 04:00 06:00 Temperature 98.6 F Pulse Rate 38 L 47 L Pulse Rate [ Bilateral] Respiratory Rate Respiratory Rate [Bilateral ] Respiratory 16 Rate [Chest] Blood Pressure Blood Pressure 118/31 [Right] O2 Sat by Pulse 100 Oximetry 08/05/21 08/05/21 08/05/21 08:35 09:08 09:10 Temperature 98.8 F Pulse Rate 39 L Pulse Rate [ 90 Bilateral] Respiratory Rate Respiratory 16 Rate [Bilateral ] Respiratory Rate [Chest] Blood Pressure 110/64 Blood Pressure [Right] O2 Sat by Pulse 99 98 Oximetry 08/05/21 08/05/21 08/05/21 10:00 11:57 14:40 Temperature Pulse Rate Pulse Rate [ 68 Bilateral] Respiratory 18 18 Rate Respiratory 16 Rate [Bilateral ] Respiratory Rate [Chest] Blood Pressure 127/68 Blood Pressure [Right] O2 Sat by Pulse 96 Oximetry 08/05/21 15:00 Temperature Pulse Rate 76 Pulse Rate [ Bilateral] Respiratory Rate Respiratory Rate [Bilateral ] Respiratory Rate [Chest] Blood Pressure Blood Pressure [Right] O2 Sat by Pulse Oximetry General appearance: Present: no acute distress, well-nourished - EENT Eyes: PERRL, EOM intact ENT: hearing intact, clear oral mucosa Ears: bilateral: normal - Neck Neck: supple, normal ROM - Respiratory Respiratory effort: normal Respiratory: bilateral: CTA - Breasts Breasts: normal - Cardiovascular Heart rate: 78 Rhythm: regular Heart Sounds: Present: S1 & S2. Absent: gallop, rub Extremities: pulses intact, No edema, normal color, Full ROM - Gastrointestinal General gastrointestinal: Present: soft, non-tender, distended, normal bowel sounds - Genitourinary Female genitourinary: normal - Integumentary Integumentary: clear, warm, dry - Musculoskeletal Musculoskeletal: 1, strength equal bilaterally - Neurologic Neurologic: moves all extremities - Psychiatric Psychiatric: memory intact, appropriate mood/affect, intact judgment & insight - Labs CBC & Chem 7: 08/02/21 04:39 08/02/21 04:39
[2021-08-06] MEDS: FUROSEMIDE 40 MG/4 ML INJ IV SCH ×2 (06:23→18:45)
[2021-08-06] MEDS: IPRATROPIUM/ALBUTEROL SULFATE 3 ML AMPUL.NEB IH SCH ×2 (08:41→14:42)
[2021-08-06] MEDS: MILRINONE-D5W 20 MG/100 ML 20 MG/100 ML BAG IV SCH ×3 (08:50→22:04)
--- NOTE | 2021-08-06 09:00 | Progress Note ---
Assessment and Plan - Patient Problems (1) Acute on chronic systolic heart failure Current Visit: Yes Status: Acute Plan to address problem: Continue optimal medical therapy for acute on chronic systolic heart failure including intravenous diuretics and intravenous milrinone. Internal medicine and GI work-up and management of persistent severe ascites. Subjective Date of service: 08/06/21 Principal diagnosis: Acute on chronic systolic heart failure Interval history: Patient is comfortable, no acute respiratory distress, no new cardiac complaints. Objective Vital Signs Temp Pulse Pulse Resp Resp BP BP 08/06/21 08:44 08/06/21 08:41 75 16 08/06/21 04:35 97.5 F L 77 16 142/63 08/06/21 04:30 98.6 F 61 18 139/80 08/06/21 00:44 18 08/05/21 22:23 98 F 63 18 113/39 08/05/21 21:39 08/05/21 20:35 63 08/05/21 16:13 97.7 F 79 117/56 08/05/21 15:00 76 08/05/21 14:40 68 16 08/05/21 11:57 18 127/68 08/05/21 10:00 18 08/05/21 09:10 08/05/21 09:08 90 16 Pulse Ox 08/06/21 08:44 98 08/06/21 08:41 08/06/21 04:35 97 08/06/21 04:30 98 08/06/21 00:44 98 08/05/21 22:23 100 08/05/21 21:39 97 08/05/21 20:35 08/05/21 16:13 98 08/05/21 15:00 08/05/21 14:40 08/05/21 11:57 08/05/21 10:00 96 08/05/21 09:10 98 08/05/21 09:08 - Physical Examination General: No Apparent Distress HEENT: Positive: PERRL Neck: Positive: neck supple Cardiac: Positive: Reg Rate and Rhythm Lungs: Positive: Decreased Breath Sounds Neuro: Positive: Grossly Intact Abdomen: Positive: Ascites, Firm, Distended Skin: Positive: Clear Extremities: Present: +1 Edema
--- NOTE | 2021-08-06 09:42 | Progress Note ---
Assessment and Plan Assessment and Plan VTE prophylaxis?: Mechanical Plan of care discussed with patient/family: Yes - Patient Problems (1) CHF exacerbation and Dilated cardiomyopathy Current Visit: Yes Status: Acute Plan to address problem: On Milrinone drip IV Lasix (2) Ascites Current Visit: Yes Status: Acute Plan to address problem: Paracentesis on Saturday by radiology (3) Asthma Current Visit: Yes Status: Acute Plan to address problem: Oxygen by nasal cannula 3 L/min. DuoNeb via nebulizer every 4 hours. Albuterol via nebulizer every 4 hours as needed (4) Fluid overload Current Visit: Yes Status: Acute Plan to address problem: Cardiac diet. Fluid restriction. Coreg 6.25 mg p.o. twice daily. Lisinopril 2.5 mg p.o. daily. Lasix 40 mg IV every 12 hours. Will consult ultrasound-guided paracentesis (5) DVT prophylaxis Current Visit: Yes Status: Acute Plan to address problem: SCD for DVT prophylaxis. Pepcid 20 mg p.o. twice daily for GI prophylaxis. Patient is a full code Subjective Date of service: 08/04/21 Principal diagnosis: Acute on chronic systolic heart failure Interval history: 66-year female with a history of nonischemic cardiomyopathy with a EF of 20 to 25% as per echocardiogram here December 2020 presents to the hospital with complaints of recurrent abdominal swelling, leg edema, and dyspnea on exertion. Patient denies chest pain. History of paracentesis in the past with last several months ago. Patient is currently wearing a LifeVest. She is compliant with her medications including diuretics. Patient expresses confusion regarding her recommended fluid intake. Intern Product Marketing Manager: Dr. Pollard affiliated with [facility] In the emergency room [place] [address], chest x-ray shows interval increase in degree of cardiomegaly could reflect presence of pericardial effusion. Mild CHF not excluded. We are going to admit the patient we will put the patient on CHF pathway will consult cardiology 08/02/2021 Patient started on milrinone drip for severe CHF 08/03/21 On Milrinone drip 08/04/21 On Milrinone drip Objective - Constitutional Vitals: Vital Signs - 12hr 08/05/21 08/06/21 08/06/21 22:23 00:44 04:30 Temperature 98 F 98.6 F Pulse Rate 63 61 Pulse Rate [ Bilateral] Respiratory 18 18 18 Rate Respiratory Rate [Bilateral ] Blood Pressure 113/39 139/80 [Right] O2 Sat by Pulse 100 98 98 Oximetry 08/06/21 08/06/21 08/06/21 04:35 08:41 08:44 Temperature 97.5 F L Pulse Rate 77 Pulse Rate [ 75 Bilateral] Respiratory 16 Rate Respiratory 16 Rate [Bilateral ] Blood Pressure 142/63 [Right] O2 Sat by Pulse 97 98 Oximetry General appearance: Present: no acute distress, well-nourished - EENT Eyes: PERRL, EOM intact ENT: hearing intact, clear oral mucosa Ears: bilateral: normal - Neck Neck: supple, normal ROM - Respiratory Respiratory effort: normal Respiratory: bilateral: CTA - Breasts Breasts: normal - Cardiovascular Heart rate: 78 Rhythm: regular Heart Sounds: Present: S1 & S2. Absent: gallop, rub Extremities: pulses intact, No edema, normal color, Full ROM - Gastrointestinal General gastrointestinal: Present: non-tender, distended, normal bowel sounds - Genitourinary Female genitourinary: normal - Integumentary Integumentary: clear, warm, dry - Musculoskeletal Musculoskeletal: 1, strength equal bilaterally - Neurologic Neurologic: moves all extremities - Psychiatric Psychiatric: memory intact, appropriate mood/affect, intact judgment & insight - Labs CBC & Chem 7: 08/02/21 04:39 08/02/21 04:39
--- NOTE | 2021-08-06 09:43 | Progress Note ---
Assessment and Plan Assessment and Plan VTE prophylaxis?: Mechanical Plan of care discussed with patient/family: Yes - Patient Problems (1) CHF exacerbation and Dilated cardiomyopathy Current Visit: Yes Status: Acute Plan to address problem: On Milrinone drip IV Lasix (2) Ascites Current Visit: Yes Status: Acute Plan to address problem: Paracentesis by radiology (3) Asthma Current Visit: Yes Status: Acute Plan to address problem: Oxygen by nasal cannula 3 L/min. DuoNeb via nebulizer every 4 hours. Albuterol via nebulizer every 4 hours as needed (4) Fluid overload Current Visit: Yes Status: Acute Plan to address problem: Cardiac diet. Fluid restriction. Coreg 6.25 mg p.o. twice daily. Lisinopril 2.5 mg p.o. daily. Lasix 40 mg IV every 12 hours. Will consult ultrasound- guided paracentesis (5) DVT prophylaxis Current Visit: Yes Status: Acute Plan to address problem: SCD for DVT prophylaxis. Pepcid 20 mg p.o. twice daily for GI prophylaxis. Patient is a full code Subjective Date of service: 08/03/21 Principal diagnosis: Acute on chronic systolic heart failure Interval history: 66-year female with a history of nonischemic cardiomyopathy with a EF of 20 to 25% as per echocardiogram here December 2020 presents to the hospital with complaints of recurrent abdominal swelling, leg edema, and dyspnea on exertion. Patient denies chest pain. History of paracentesis in the past with last sev eral months ago. Patient is currently wearing a LifeVest. She is compliant with her medications including diuretics. Patient expresses confusion regarding her recommended fluid intake. Campground Manager: Dr. Pollard affiliated with [facility] In the emergency room [place] [address], chest x-ray shows interval increase in degree of cardiomegaly could reflect presence of per icardial effusion. Mild CHF not excluded. We are going to admit the patient we will put the patient on CHF pathway will consult cardiology 08/02/2021 Patient started on milrinone drip for severe CHF 08/03/21 On Milrinone drip Objective - Constitutional Vitals: Vital Signs - 12hr 08/05/21 08/06/21 08/06/21 22:23 00:44 04:30 Temperature 98 F 98.6 F Pulse Rate 63 61 Pulse Rate [ Bilateral] Respiratory 18 18 18 Rate Respiratory Rate [Bilateral ] Blood Pressure 113/39 139/80 [Right] O2 Sat by Pulse 100 98 98 Oximetry 08/06/21 08/06/21 08/06/21 04:35 08:41 08:44 Temperature 97.5 F L Pulse Rate 77 Pulse Rate [ 75 Bilateral] Respiratory 16 Rate Respiratory 16 Rate [Bilateral ] Blood Pressure 142/63 [Right] O2 Sat by Pulse 97 98 Oximetry General appearance: Present: no acute distress, well-nourished - EENT Eyes: PERRL, EOM intact ENT: hearing intact, clear oral mucosa Ears: bilateral: normal - Neck Neck: supple, normal ROM - Respiratory Respiratory effort: normal Respiratory: bilateral: CTA - Breasts Breasts: normal - Cardiovascular Heart rate: 78 Rhythm: regular Heart Sounds: Present: S1 & S2. Absent: gallop, rub Extremities: pulses intact, No edema, normal color, Full ROM - Gastrointestinal General gastrointestinal: Present: soft, non-tender, distended, normal bowel sounds - Genitourinary Female genitourinary: normal - Integumentary Integumentary: clear, warm, dry - Musculoskeletal Musculoskeletal: 1, strength equal bilaterally - Neurologic Neurologic: moves all extremities - Psychiatric Psychiatric: memory intact, appropriate mood/affect, intact judgment & insight - Labs CBC & Chem 7: 08/02/21 04:39 08/02/21 04:39
[2021-08-06] MEDS: LISINOPRIL 5 MG TAB PO SCH (09:45)
[2021-08-06] MEDS: carvediloL 6.25 MG TAB PO SCH ×2 (09:45→18:45)
[2021-08-06] MEDS: FAMOTIDINE 20 MG TAB PO SCH ×2 (09:46→21:28)
[2021-08-06] MEDS: SPIRONOLACTONE 25 MG TAB PO SCH (09:46)
--- NOTE | 2021-08-06 20:20 | Progress Note ---
Assessment and Plan - Patient Problems (1) End stage congestive heart failure Current Visit: Yes Status: Acute Plan to address problem: Patient currently on milrinone drip. Patient found to have poor prognosis. Patient is near card association class IV CHF. Patient is a candidate for hospice/palliative care. Milrinone drip as per cardiology team. Discharge planning in a.m. (2) Cardiorenal syndrome Current Visit: Yes Status: Acute Plan to address problem: Chronic, supportive care. (3) Obesity hypoventilation syndrome Current Visit: Yes Status: Acute Plan to address problem: Balanced diet, supportive care. (4) DVT prophylaxis Current Visit: Yes Status: Acute Plan to address problem: SCD to bilateral lower extremities while in bed (5) Advance care planning Current Visit: Yes Status: Acute Plan to address problem: Disease education conducted, care plan discussed, diagnoses discussed, prognosis discussed, patient is full code at this time. Patient acknowledges understanding current care plan. History Interval history: 66 YO Female with End Stage CHF currently on Milrinone drip. Patient resting comfortably in bed. Patient acknowledges decreased exercise tolerance. Patient symptoms improved with milrinone drip. Patient found to have poor prognosis. Patient has a prognosis of 6 months or less if the illness runs its expected course. Patient and family counseled regarding prognosis. No reported nursing events. Patient denies pain. Discussed outcomes and care options. Discharge planning in a.m. Hospitalist Physical - Constitutional Vitals: Temp Pulse Resp BP Pulse Ox 98.0 F 94 H 18 108/52 97 08/06/21 17:33 08/06/21 17:33 08/06/21 17:33 08/06/21 17:33 08/06/21 19:05 General appearance: Present: no acute distress, well-nourished - EENT Eyes: Present: PERRL ENT: hearing intact - Neck Neck: Present: supple, masses or JVD - Respiratory Respiratory: bilateral: rales - Cardiovascular Rhythm: regular Heart Sounds: Present: S1 & S2 - Extremities Extremity abnormal: edema Peripheral Pulses: within normal limits - Abdominal General gastrointestinal: soft, non-tender, non-distended - Integumentary Integumentary: Present: clear, dry - Psychiatric Psychiatric: cooperative - Neurologic Neurologic: CNII-XII intact Results - Labs CBC & Chem 7: 08/02/21 04:39 08/02/21 04:39 Labs: Laboratory Last Values WBC 5.1 K/mm3 (4.5-11.0) 08/02/21 04:39 RBC 4.06 M/mm3 (3.65-5.03) 08/02/21 04:39 Hgb 11.3 gm/dl (10.1-14.3) 08/02/21 04:39 Hct 36.6 % (30.3-42.9) 08/02/21 04:39 MCV 90 fl (79-97) 08/02/21 04:39 MCH 28 pg (28-32) 08/02/21 04:39 MCHC 31 % (30-34) 08/02/21 04:39 RDW 17.1 % (13.2-15.2) H 08/02/21 04:39 Plt Count 118 K/mm3 (140-440) L 08/02/21 04:39 Lymph % (Auto) 23.4 % (13.4-35.0) 08/02/21 04:39 [place] % (Auto) 13.6 % (0.0-7.3) H 08/02/21 04:39 Eos % (Auto) 0.9 % (0.0-4.3) 08/02/21 04:39 Baso % (Auto) 0.5 % (0.0-1.8) 08/02/21 04:39 Lymph # (Auto) 1.2 K/mm3 (1.2-5.4) 08/02/21 04:39 [place] # (Auto) 0.7 K/mm3 (0.0-0.8) 08/02/21 04:39 Eos # (Auto) 0.0 K/mm3 (0.0-0.4) 08/02/21 04:39 Baso # (Auto) 0.0 K/mm3 (0.0-0.1) 08/02/21 04:39 Seg Neutrophils % 61.6 % (40.0-70.0) 08/02/21 04:39 Seg Neutrophils # 3.1 K/mm3 (1.8-7.7) 08/02/21 04:39 PT 16.0 Sec. (12.2-14.9) H 07/31/21 21:36 INR 1.15 (0.87-1.13) H 07/31/21 21:36 APTT 29.3 Sec. (24.2-36.6) 07/31/21 21:36 Sodium 142 mmol/L (137-145) 08/02/21 04:39 Potassium 4.0 mmol/L (3.6-5.0) 08/02/21 04:39 Chloride 103.5 mmol/L (98-107) 08/02/21 04:39 Carbon Dioxide 30 mmol/L (22-30) 08/02/21 04:39 Anion Gap 13 mmol/L 08/02/21 04:39 BUN 20 mg/dL (7-17) H 08/02/21 04:39 Creatinine 1.4 mg/dL (0.6-1.2) H 08/02/21 04:39 Estimated GFR 46 ml/min 08/02/21 04:39 BUN/Creatinine Ratio 14 % 08/02/21 04:39 Glucose 101 mg/dL (65-100) H 08/02/21 04:39 Calcium 8.2 mg/dL (8.4-10.2) L 08/02/21 04:39 Total Bilirubin 2.00 mg/dL (0.1-1.2) H 07/31/21 21:36 AST 19 units/L (5-40) 07/31/21 21:36 ALT 9 units/L (7-56) 07/31/21 21:36 Alkaline Phosphatase 185 units/L (35-129) H 07/31/21 21:36 NT-Pro-B Natriuret Pep 23457 pg/mL (0-900) H 07/31/21 21:36 Total Protein 6.9 g/dL (6.3-8.2) 07/31/21 21:36 Albumin 3.6 g/dL (3.9-5) L 07/31/21 21:36 Albumin/Globulin Ratio 1.1 % 07/31/21 21:36 Nasal Screen MRSA (PCR) Positive (Negative) 08/02/21 06:30 Microbiology: Microbiology 08/01/21 14:20 Ascities Fluid Body Fluid Culture - Final [place]/IV: Voiding Method Bedside Commode Active Medications - Current Medications Current Medications: Generic Name Dose Route Start Last Admin Trade Name Freq PRN Reason Stop Dose Admin Acetaminophen 650 mg 08/01/21 01:32 08/05/21 16:30 Acetaminophen 325 Mg Tab PO 650 mg Q4H PRN Administration Pain MILD(1-3)/Fever >100.5/DONIS Albuterol 2.5 mg 08/01/21 01:32 Albuterol 2.5 Mg/3 Ml Nebu IH Q3HRT PRN Shortness Of Breath Carvedilol 6.25 mg 08/01/21 08:00 08/06/21 18:45 Carvedilol 6.25 Mg Tab PO 6.25 mg BID@0800,1700 [place] Administration Famotidine 20 mg 08/01/21 10:00 08/06/21 09:46 Famotidine 20 Mg Tab PO 20 mg BID [facility] Administration Furosemide 40 mg 08/01/21 06:00 08/06/21 18:45 Furosemide 40 Mg/4 Ml Inj IV 40 mg BID@0600,1800 [facility] Administration Milrinone Lactate/Dextrose 20 mg in 100 mls @ 14.029 mls/hr 08/06/21 09:00 08/06/21 13:18 Milrinone-D5w 20 Mg/100 Ml IV 08/09/21 08:59 0.375 mcg/kg/min DIRECT [place] 14.029 mls/hr Administration Protocol 0.375 MCG/KG/MIN Lisinopril 5 mg 08/01/21 12:26 08/06/21 09:45 Lisinopril 5 Mg Tab PO 5 mg QDAY [facility] Administration Morphine Sulfate 2 mg 08/01/21 01:32 Morphine 2 Mg/1 Ml Inj IV Q4H PRN Pain, Moderate (4-6) Morphine Sulfate 4 mg 08/01/21 01:32 Morphine 4 Mg/1 Ml Inj IV Q4H PRN Pain , Severe (7-10) Ondansetron HCl 4 mg 08/01/21 01:32 Ondansetron 4 Mg/2 Ml Inj IV Q8H PRN Nausea And Vomiting Sodium Chloride 10 ml 08/01/21 10:00 08/06/21 09:46 Sodium Chloride 0.9% 10 Ml Flush Syringe IV 10 ml BID [facility] Administration Sodium Chloride 10 ml 08/01/21 01:32 Sodium Chloride 0.9% 10 Ml Flush Syringe IV PRN PRN LINE FLUSH Spironolactone 25 mg 08/01/21 10:00 08/06/21 09:46 Spironolactone 25 Mg Tab PO 25 mg QDAY [facility] Administration Nutrition/Malnutrition Assess - Dietary Evaluation Nutrition/Malnutrition Findings: Nutrition Notes Start: 08/01/21 17:39 Freq: Status: Active Protocol: Document 08/01/21 17:39 KAYCEE (Rec: 08/01/21 18:08 KAYCEE [id number]) Nutrition Notes Need for Assessment generated from: MD Order Initial or Follow up Assessment Other Pertinent Diagnosis HFrEF, Bilateral-LE Pitting Edema 1+, Chest Pain, Dilated Cardiomyopathy... Current Diet Cardiac -Renal- Diet (since B 08/01). Labs/Tests 08/01: BUN 20, Crea 1.3, Glu 123. Pertinent Medications 08/01: Nutritionally unremarkable. 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 Weight Status Morbidly Obese Subjective/Other Information RD consult for dietary supplementation assessment. No reports available on Pt's PO intake of meals at the time , will assess at F/U. I will not prescribe dietary supplementation at this time since appears to be not necessary to compensate for poor or insufficient PO intake of meals; however, I will prescribe Renal restriction to current diet, to support Pt's NICOLE Vs CKD condition. Pt is on Room Air, O2 saturation @ 95%, according to Physical Assessment History notes. Pt presents Bilateral-LE Pitting Edema 1+, according to Physical Assessment History notes. Pt presents an unspecified area of concern for skin risk, according to Physical Assessment History notes. Percent of energy/protein needs met: Prescribed Cardiac -Renal- Diet provides for energy/ protein needs (2,230 Kcal/85 g ) during LOS. Burn Absent Trauma Absent GI Symptoms None Food Allergy No Skin Integrity/Comment Unspecified area of concern. 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 NICOLE. As Evidenced by Signs and Symptoms 08/01: BUN 20, Crea 1.3. Is patient on ventilator? No Is Patient Ambulatory and/or Out of Bed Yes REE-([facility]-ambulatory/OOB) [ 8020.050 [id number]] Kcal/Kg value to use for calculation 16 Approximate Energy Requirements Using 1994 kcal/Kg Calculation Used for Recommendations Kcal/kg Additional Notes Protein: 0.6-0.8 g/Kg AdjBW; 58-77 g/day. Fluids: 1 ml/Kcal, or as per MD. Nutrition Intervention Change Diet Order: Modify to Cardiac -Renal- Diet . Goal #1 Adjust the dietary intervention to better serve Pt's needs and clinical conditions during LOS. Follow-Up By: 08/08/21 Additional Comments Continue monitoring food tolerance, %PO intake of meals , and BM.
[2021-08-07] MEDS: FUROSEMIDE 40 MG/4 ML INJ IV SCH (06:13)
[2021-08-07] MEDS: MILRINONE-D5W 20 MG/100 ML 20 MG/100 ML BAG IV SCH (08:38)
[2021-08-07 08:51] VITALS: BP 128/66
[2021-08-07] MEDS: SPIRONOLACTONE 25 MG TAB PO SCH (09:01)
[2021-08-07] MEDS: carvediloL 6.25 MG TAB PO SCH (09:02)
[2021-08-07] MEDS: LISINOPRIL 5 MG TAB PO SCH (09:02)
[2021-08-07] MEDS: FAMOTIDINE 20 MG TAB PO SCH (09:03)
--- NOTE | 2021-08-07 11:58 | Discharge Summary ---
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 Patient seen and evaluated in the emergency department. All lab and imaging studies reviewed. Patient found to have decompensated congestive heart failure. Patient admitted to telemetry and initiated on CHF protocol. Patient treated with IV diuretic therapy without significant improvement in symptoms. Patient initiated on milrinone drip. Patient symptomatology improved during hospital course. Patient medically optimized. Patient underwent therapeutic paracentesis during hospital course. Patient medically optimized during hospital course. Patient found to have [place] heart association class IV congestive heart failure. Patient found to have poor prognosis with a prognosis of 6 months or less if the illness runs its expected course. Patient deemed a candidate for hospice care. Advanced care planning conducted. All treatment options discussed. Patient medically optimized at this time. Patient seen and evaluated prior to discharge no significant physical exam findings. Patient safely discharged home. Patient counseled regarding home hospice evaluation. Home hospice care team notified. 35 minutes dedicated to patient discharge and coordination of care. Disposition: 50 HOSPICE/HOME Final Discharge Diagnosis (Prints w/discharge instructions): End-stage CHF Time spent for discharge: 35 minutes - Discharge Diagnoses (1) End stage congestive heart failure Status: Acute (2) Cardiorenal syndrome Status: Acute (3) Obesity hypoventilation syndrome Status: Acute (4) DVT prophylaxis Status: Acute (5) Advance care planning Status: Acute Core Measure Documentation - Palliative Care Palliative Care/ Comfort Measures: Hospice Care Exam - Constitutional Vitals: Temp Pulse Resp BP Pulse Ox 97.8 F 92 H 18 128/66 97 08/07/21 08:37 08/07/21 09:02 08/07/21 04:05 08/07/21 08:37 08/07/21 04:05 General appearance: Present: mild distress - EENT Eyes: Present: PERRL ENT: hearing intact, clear oral mucosa - Neck Neck: Present: masses or JVD - Respiratory Respiratory effort: normal Respiratory: bilateral: CTA - Cardiovascular Heart Sounds: Present: S1 & S2. Absent: rub, click - Extremities Extremity abnormal: edema Peripheral Pulses: within normal limits - Abdominal General gastrointestinal: Present: soft, distended - Integumentary Integumentary: Present: clear, warm, dry - Musculoskeletal Musculoskeletal: generalized weakness - Psychiatric Psychiatric: appropriate mood/affect, intact judgment & insight - Neurologic Neurologic: CNII-XII intact, moves all extremities Plan Activity: advance as tolerated Weight Bearing Status: Weight Bear as Tolerated Diet: low salt Special Instructions: restrict fluid intake to (6 glasses of of water daily), record daily weights, record daily BP diary, home hospice Follow up with: PRIMARY CARE,MD [Primary Care Provider] - 3-5 Days Prescriptions: Spironolactone [Aldactone] 25 mg PO QDAY #30 tablet carvediloL [Coreg] 6.25 mg PO BID #60 tablet Furosemide [Lasix TAB] 80 mg PO DAILY #30 lisinopriL [Zestril TAB] 2.5 mg PO QDAY #30 tablet
== END 2021-08-07 15:00 | disposition hospice, home (50) | DRG 291 ==
LOC: ED 21:12 → 4A 08-01 01:32
PROVIDERS: ADMIT Hospitalist; ATTEND Internal Medicine
PROC: 0W9G3ZZ Drainage of Peritoneal Cavity, Percutaneous Approach (ICD-10-PCS; principal; 2021-08-01)
DX: I13.0 Hypertensive heart and chronic kidney disease with heart failure and stage 1 through stage 4 chronic kidney disease, or unspecified chronic kidney disease (principal); I50.23 Acute on chronic systolic (congestive) heart failure; R18.8 Other ascites; E66.2 Morbid (severe) obesity with alveolar hypoventilation; Z68.41 Body mass index [BMI] 40.0-44.9, adult; N18.9 Chronic kidney disease, unspecified; I42.0 Dilated cardiomyopathy; Z71.3 Dietary counseling and surveillance; Z79.899 Other long term (current) drug therapy; F17.200 Nicotine dependence, unspecified, uncomplicated; Z82.49 Family history of ischemic heart disease and other diseases of the circulatory system; J45.909 Unspecified asthma, uncomplicated; Z51.5 Encounter for palliative care
CPT/HCPCS: 36415; 49083; 71046; 80048; 80053; 83880; 85025; 85610; 85730; 87116; 87641; 88112; 93005; 94640; 94760; G0378; J1940; J2260